=== PATIENT | female | born 1985 ===

== ENCOUNTER 2017-05-25 13:14 | Inpatient (IN) | payer OTHER, MEDICAID ==
[2017-05-25] MEDS ORDERED: Dinoprostone* 10 MG VAG.SUPP VAGINAL ONE (14:01)
[2017-05-25] MEDS ORDERED: Penicillin G Potassium IV* 5,000,000 UNITS in NS 0.9% 100 ML* 100 ML IVPB ONE (14:30)
[2017-05-26] MEDS ORDERED: Nalbuphine* 20 MG/ML 1 ML VIAL IV ONE (00:30)
[2017-05-26] MEDS ORDERED: Promethazine INJ(RESTRICTED)* 25 MG/ML 1 ML VIAL IV ONE (00:30)
[2017-05-26] MEDS ORDERED: Oxytocin in LR* 20 UNITS/1,000 ML BAG IVPB ONE (01:42)
[2017-05-26] MEDS ORDERED: Acetaminophen TAB* 325 MG PO PRN (02:48)
[2017-05-26] MEDS ORDERED: Witch Hazel PAD* JAR TOPICAL PRN (02:48)
[2017-05-26] MEDS ORDERED: Dibucaine 1% 28.35 GM TUBE PR PRN (02:48)
[2017-05-26] MEDS ORDERED: Glycerin ADULT SUPP PR PRN (02:48)
[2017-05-26] MEDS ORDERED: Oxytocin in LR* 20 UNITS/1,000 ML BAG IVPB SCH (03:00)
[2017-05-26] MEDS ORDERED: Simethicone TAB* 80 MG TAB.CHEW PO SCH (08:30)
[2017-05-26] MEDS: Docusate CAP* 100 MG PO SCH ×3 (09:44→22:05)
[2017-05-26] MEDS: Ibuprofen TAB* 600 MG PO PRN ×3 (09:44→22:20)
[2017-05-26] MEDS ORDERED: Lidocaine 1% MPF* 2 ML VIAL ONE (11:30)
--- NOTE | 2017-05-26 14:20 | PTEDU ---
Patient Name: ZAKI GALAN GALANISMAELSURYAHOWARD selected video: BBOB: Nurturing Your Gorgeous &Growing Baby by to view on 05/26/2017 at 2:18:15 PM from [email or web address]
--- NOTE | 2017-05-26 14:54 | PTEDU ---
Patient Name: ZAKI GALAN GALANZAKI selected video: BBOB: Nurturing Your Gorgeous &Growing Baby by to view on 05/26/2017 at 2:53:59 PM [email or web address]
[2017-05-26] MEDS: Penicillin G Potassium IV* 2,500,000 UNITS in NS 0.9% 100 ML* 100 ML IVPB SCH ×2 (21:51→22:01)
[2017-05-27] MEDS: Ibuprofen TAB* 600 MG PO PRN ×2 (04:22→16:10)
[2017-05-27] MEDS: Docusate CAP* 100 MG PO SCH ×3 (09:02→20:19)
[2017-05-27] MEDS: Ferrous Gluconate TAB* 324 MG TAB PO SCH ×2 (09:30→20:18)
[2017-05-27 12:25] LABS: ABS Basophils 0.1 10^3/ul (0-0.2); ABS Eosinophils 0 10^3/ul (0-0.6); ABS Lymphocytes 1.9 10^3/ul (1.0-4.8); ABS Monocytes 0.5 10^3/ul (0-0.8); ABS Neutrophils 10.7 10^3/ul (1.5-7.7); ABS Nucleated RBC 0 10^3/ul; Eosinophil % 0.3 % (0-6); Hematocrit 29 % (35-47); Hemoglobin 9.5 g/dl (12.0-16.0); Lymphocyte % 14.2 % (25-47); Mean Corpuscular HGB Conc 33 g/dl (31-36); Mean Corpuscular Hemoglobin 28 pg (27-31); Mean Corpuscular Volume 85 fL (80-97); Mean Platelet Volume 8 um3 (7.4-10.4); Nucleated Red Blood Cells % 0; Platelet Count 224 10^3/ul (150-450); Red Blood Count 3.43 10^6/ul (4.0-5.4); Red Cell Distribution Width 16 % (10.5-15); White Blood Count 13.2 10^3/ul (3.5-10.8)
--- NOTE | 2017-05-27 21:12 | PTEDU ---
Patient Name: ZAKI GALAN ADAMA ZAKI selected video: Never Ever Shake a Baby to view on 05/27/2017 at 9:11:[address] [facility] [id number]
[2017-05-28] MEDS: Ibuprofen TAB* 600 MG PO PRN (04:44)
[2017-05-28 07:59] VITALS: BP 122/61
[2017-05-28] MEDS: Ferrous Gluconate TAB* 324 MG TAB PO SCH (09:15)
[2017-05-28] MEDS: Docusate CAP* 100 MG PO SCH (09:15)
== END 2017-05-28 13:30 | disposition home or self-care (01) | DRG 775 ==
LOC: MCHOBOUT 13:14 → MCHOB 14:09
PROVIDERS: ADMIT Obstetrics & Gynecology; ATTEND Obstetrics & Gynecology
PROC: 10E0XZZ Delivery of Products of Conception, External Approach (ICD-10-PCS; principal; 2017-05-26)
PROC: 0KQM0ZZ Repair Perineum Muscle, Open Approach (ICD-10-PCS; 2017-05-26)
PROC: 3E033VJ Introduction of Other Hormone into Peripheral Vein, Percutaneous Approach (ICD-10-PCS; 2017-05-26)
DX: O14.04 Mild to moderate pre-eclampsia, complicating childbirth (principal); D64.9 Anemia, unspecified; O90.81 Anemia of the puerperium; O48.0 Post-term pregnancy; O99.824 Streptococcus B carrier state complicating childbirth; O70.1 Second degree perineal laceration during delivery; Z37.0 Single live birth; Z3A.40 40 weeks gestation of pregnancy
CPT/HCPCS: 36415; 59200; 85025; 86850; 86900; 86901; A9270-GY; J2300; J2540; J2550